=== PATIENT | male | born 1960 | race Caucasian/White ===

== ENCOUNTER 2021-06-25 01:09 | Day surgery (SDC) | payer BC, SELFPAY ==
[2021-05-27 09:58] VITALS: BMI 31.6
--- NOTE | 2021-06-24 12:54 | PM.HPGS ---
History of Present Illness History of Present Illness Consent: Risks, benefits, and alternatives have been discussed and questions answered. Patient agrees to proceed with procedure. Chief complaint: neoplasm screening Narrative: Pelon Gambino is a 61 year old male who was referred for colon cancer screening. His last exam was 12 years ago and was unremarkable Review of Systems Review of Systems: All systems reviewed & are unremarkable except as noted in HPI and below PMFSH Past Medical History Medical History Hypertension AMI (obstructive sleep apnea) Surgical History Surgical History H/O shoulder surgery (~2018) Family History Family History Mother Hypertension Cerebrovascular accident Family history of malignant neoplasm of cervix Heart disease Father Alcohol abuse Grandparent Heart disease Social History Social History Social History: Caffeine-2 cups daily Smoking packs per day: 1 Smoking cigarettes per day: 20.0 Years smoked: 13 Smoking pack-years: 13.00 Smoking status: Former smoker Tobacco type: cigarettes Second hand tobacco smoke exposure: No Smoking end date: 05/31/89 Alcohol intake: current Drinks per week: 2 Alcohol use details: Beer Substance use: never Substance use type: does not use Living arrangements: with family Spiritual care concerns: No Meds Home Medications and Allergies Home Medications Medication Instructions Recorded Confirmed Type lisinopril 20 See Rx Instructions .ROUTE 03/12/21 06/25/21 Rx mg-hydrochlorothiazide 12.5 mg .COMPLEX #180 tablet tablet Allergies Allergy/AdvReac Type Severity Reaction Status Date / Time Penicillins Allergy Unknown unkown Verified 06/25/21 07:49 Exam Resp: Auscultation: clear to auscultation bilaterally Cardio: Rate: regular rate Rhythm: regular rhythm GI: GI Palp: Yes Soft to palpation and No Tenderness to palpation present (GI) Assessment and Plan Assessment and plan (1) Screening for colon cancer: Code(s): Z12.11 - Encounter for screening for malignant neoplasm of colon Status: Acute Assessment and Plan: Colonoscopy with possible biopsy or polypectomy or cautery or injection of substances.
[2021-06-25 07:50] VITALS: BP 134/80; PULSE 88; RESP 18; TEMP 36.3; O2SAT 98
[2021-06-25] MEDS: LACTATED RINGERS 1,000 ML 150 ML IV CONT (07:59)
--- NOTE | 2021-06-25 08:09 | WPDANESEPPF ---
Anes - Initial Pre Proc Eval Procedure: Operation Date: 06/25/21 09:00 Proposed Procedures p Screening Colonoscopy - Ryan Mcdonald MD Date/Time: 06/25/21 08:09 Surgeon: Ryan Mcdonald MD Pre Op Diagnosis: neoplasm screening Patient Data Age: 61 Gender: M Height: 1.78 m Weight: 97.6 kg Last Vital Signs Temp 36.3 C L 06/25/21 07:50 Pulse 88 06/25/21 07:50 Resp 18 06/25/21 07:50 BP 134/80 06/25/21 07:50 Pulse Ox 98 06/25/21 07:50 Allergies Allergy/AdvReac Type Severity Reaction Status Date / Time Penicillins Allergy Unknown unkown Verified 06/25/21 07:49 Home Medications Medication Instructions Recorded Confirmed Type lisinopril 20 See Rx Instructions .ROUTE 03/12/21 06/25/21 Rx mg-hydrochlorothiazide 12.5 mg .COMPLEX #180 tablet tablet Patient hx anesthesia problems: none Family hx anesthesia problems: none Results Review: All pre-operative results and documents have been reviewed as part of the pre-operative evaluation. [facility] Past Medical History Medical History (Updated 06/25/21 @ 08:10 by Elier Ojeda MD) Hypertension AMI (obstructive sleep apnea) Surgical History Surgical History (Updated 03/12/21 @ 08:25 by Lynn Baires) H/O shoulder surgery (~2017) Family History Family History (Updated 03/12/21 @ 08:28 by Lynn Baires) Mother Hypertension Cerebrovascular accident Family history of malignant neoplasm of cervix Heart disease Father Alcohol abuse Grandparent Heart disease Social History Social History (Updated 03/12/21 @ 08:29 by Lynn Baires) Social History: Caffeine-2 cups daily Smoking packs per day: 1 Smoking cigarettes per day: 20.0 Years smoked: 13 Smoking pack-years: 13.00 Smoking status: Former smoker Tobacco type: cigarettes Second hand tobacco smoke exposure: No Smoking end date: 05/31/89 Alcohol intake: current Drinks per week: 2 Alcohol use details: Beer Substance use: never Substance use type: does not use Living arrangements: with family Spiritual care concerns: No Anes - Eval Final PreProcedure Day of Procedure 06/25/21 08:09 Patient weight: overweight Heart: regular rate and rhythm Lungs: clear to auscultation and normal air movement Airway: Mallampati scale class II Neurological: alert and oriented Last oral intake: >/= 8 hours ASA classification: II Emergent: no Anesthetic plan: proceed Anesthesia type and monitoring: general GIVS Results Review: All pre-operative results and documents have been reviewed as part of the pre-operative evaluation. Informed Consent: The patient's anesthetic plan and its attendant risks and benefits were discussed with the patient/family/POA. Questions were solicited and answers provided to the satisfaction of the patient/family/POA.
[2021-06-25 09:13] VITALS: BP 99/71; PULSE 76; RESP 18; O2SAT 96
== END 2021-06-25 09:37 | disposition home or self-care (01) ==
PROVIDERS: PCP Internal Medicine; Visit Provider Internal Medicine Gastroenterology
PROC: 0DJD8ZZ Inspection of Lower Intestinal Tract, Via Natural or Artificial Opening Endoscopic (ICD-10-PCS; CPT 45378; principal; 2021-06-25 09:00)
DX: Z12.11 Encounter for screening for malignant neoplasm of colon (principal); K64.8 Other hemorrhoids; I10 Essential (primary) hypertension; G47.33 Obstructive sleep apnea (adult) (pediatric); Z87.891 Personal history of nicotine dependence
CPT/HCPCS: 45378; J2001; J2704; J7120

== ENCOUNTER 2022-03-18 09:16 | Outpatient (CLI) | payer BC, SELFPAY ==
[2022-03-18 18:23] LABS: Basophils Percent Auto 0.5 % (0.2-1.2); Eosinophils Absolute Auto 0.1 K/mm3 (0-0.3); Eosinophils Percent Auto 1.7 % (0-4.4); Hematocrit 45.9 % (42.0-52.0); Hemoglobin 15.6 g/dL (14.0-18.0); Immature Granulocyte Absolute 0.04 K/mm3 (0.00-0.031); Immature Granulocyte Percent A 0.5 % (0-0.5); Lymphocytes Absolute Auto 1.29 K/mm3 (0.9-3.2); Lymphocytes Percent Auto 15.2 % (18.3-44.2); Mean Corpuscular Hemoglobin 29.8 pg (26-34); Mean Corpuscular Volume 87.6 fl (80-100); Mean Platelet Volume 10.3 fl (7.4-10.4); Monocytes Absolute Auto 0.6 K/mm3 (0.1-0.6); Monocytes Percent Auto 7.4 % (2.6-8.5); Neutrophils Absolute Auto 6.3 K/mm3 (1.3-6.7); Neutrophils Percent Auto 74.7 % (45.5-73.1); Platelet Count Result 178 k/mm3 (150-375); Red Blood Count 5.24 M/mm3 (4.6-6.20); Red Cell Distribution Width 13.2 % (11.5-14.5); White Blood Count 8.5 K/mm3 (4.5-10.0)
[2022-03-18 18:38] LABS: Alanine Aminotransferase 30 U/L (6-50); Albumin Level 4.7 g/dL (3.5-5.1); Alkaline Phosphatase 94 U/L (38-126); Anion Gap 11 mmol/L (8-16); Aspartate Amino Transferase 26 U/L (17-59); Bilirubin,Total 0.7 mg/dL (0.2-1.3); Blood Urea Nitrogen 14 mg/dL (9-20); Calcium 9.5 mg/dL (8.4-10.2); Carbon Dioxide 26 mmol/L (22-30); Chloride 100 mmol/L (98-107); Cholesterol 174 mg/dL (0-200); Estimated Glomerular Filt Rate > 60; Glucose 121 mg/dL (65-110); HDL Direct 35 mg/dL; Potassium 4.2 mmol/L (3.4-5.0); Sodium 137 mmol/L (137-145); Triglycerides 99 mg/dL (<150)
[2022-03-18 18:49] LABS: LDL Cholesterol Direct 99 mg/dL
[2022-03-18 19:09] LABS: Prostate Specific Antigen 1.3 ng/mL (< OR = 4.0)
[2022-03-19 13:39] LABS: Hemoglobin A1C 5.6 % (<5.7)
== END 2022-03-18 09:17 | disposition home or self-care (01) ==
LOC: ANHGOSHLAB 09:19
PROVIDERS: PCP Internal Medicine; Visit Provider Nurse Practitioner
DX: Z12.5 Encounter for screening for malignant neoplasm of prostate (principal); Z13.220 Encounter for screening for lipoid disorders; Z13.29 Encounter for screening for other suspected endocrine disorder
CPT/HCPCS: 36415; 80053; 80061; 83036; 84153; 85025; G0103

== ENCOUNTER 2022-05-26 08:01 | Outpatient (CLI) | payer BC, SELFPAY ==
--- NOTE | 2022-06-04 14:37 | WPDHOMESLEEP ---
Sleep Study - Home Unattended Date of Study: 05/26/22 Ordering Provider: Angelica Serrano NP Interpreting Provider: Natalia Minaya MD Home Sleep Study Type: Watch PAT Height: 1.78 m Weight: 99.79 kg Body Mass Index: 31.5 Neck Circumference (inches): 17.25 [place]: 7 Reason for Sleep Study Loud snoring, history of using CPAP, now using an oral appliance which is not controlling his snoring * 07/15/2008 - Basic nocturnal polysomnogram with moderate obstructive sleep apnea, AHI 26.3, desaturation to 89% with heavy snoring. BMI 30.8 at the time. Sleep History Pelon Winkler is a 62-year-old retired male with a history of constant snoring. He has been told that he stops breathing at night. He had a basic sleep study 07/15/2008 with an AHI of 26.3 and loud snoring. has used CPAP in the past but never benefitted from using it. He currently is using an oral appliance that has worked for several years. Currently, it does not stop his snoring. He has a difficult time falling asleep and staying asleep. He wakes up during the night. He rarely awakens from sleep feeling short of breath. He occasionally awakens at night with heartburn, belching or coughing. He constantly snores and it is frequently loud enough that others complain about it. He frequently has trouble sleeping with a cold. He rarely wakes up gasping for breath at night. He rarely has breathing problems at night reported to him by others. He rarely sweats excessively at night. He rarely notices his heart pounding or beating irregularly at night. He rarely falls asleep during the day. He does not fall asleep involuntarily or while driving. He does not have loss of muscle tone with strong emotion. He does not have daytime difficulties due to excessive sleepiness. He does not feel paralyzed on waking or falling asleep. He rarely has vivid dreamlike scenes on waking or falling asleep. He rarely feels afraid to go to sleep. He rarely has nightmares. He rarely remembers his dreams. He occasionally has racing thoughts. He rarely feels sad or depressed. He occasionally has anxiety. He rarely has muscular tension or notices parts of his body jerking. He does not kick at night or have crawling or aching feelings in his legs. He rarely has any kind of leg pain at night. He rarely has morning jaw pain. He frequently grinds his teeth during sleep. He is not bothered by pain during the day. He rarely is awakened by pain at night. He occasionally wakes up feeling stiff in the morning with sore achy muscles and pain in the neck and spine. Normal bedtime is 10:00 p.m. taking 30 minutes or occasionally up to an hour to fall asleep. He typically wakes 2-3 times during the night to go to the bathroom. It may take him 15-30 minutes to return to sleep. His normal wake time is 6:00 a.m.. He keeps the same schedule on weekends. He estimates getting between 6 and 8 hours of sleep at night. if he wakes before 6:00 a.m., he tries to stay in bed until at least 6:00 a.m. resting. He does not take naps. On occasion, he awakens feeling refreshed. He feels better in the morning compared to other times of day. Habits: Quit tobacco years ago. Caffeine: 3 cups a day. Alcohol: 2-3 beverages usually on the weekends. No recreational drugs. [facility] Past Medical History Medical History Hypertension AMI (obstructive sleep apnea) Surgical History Surgical History H/O shoulder surgery (~2018) Family History Family History Mother Hypertension Cerebrovascular accident Family history of malignant neoplasm of cervix Heart disease Father Alcohol abuse Grandparent Heart disease Social History Social History Social History: Caffeine-2 cups daily Smoking packs per d
[2022-06-04 15:11] VITALS: BMI 31.5
--- NOTE | 2022-09-22 10:09 | SLEEP ---
new calls [id number]
== END 2022-05-27 10:17 | disposition home or self-care (01) ==
LOC: ANHCSM 08:02
PROVIDERS: PCP Internal Medicine; Visit Provider Nurse Practitioner
DX: G47.30 Sleep apnea, unspecified (principal)
CPT/HCPCS: 95800

== ENCOUNTER 2022-06-30 08:21 | Outpatient (CLI) | payer BC, SELFPAY ==
--- NOTE | 2022-06-30 09:02 | ECHO_ITS ---
Patient Info Name: Pelon Gambino Age: 62 years : 1960 Gender: Male Ht: 70 in Wt: 213 lbs BSA: 2.21 m2 HR: 71 bpm BP: 149 / 91 mmHg Technical Quality: Good Exam Date: 06/30/2022 9:10 AM Exam Location: [facility] Patient Status: Outpatient Admit Date: 06/30/2022 Staff Ordering Physician: Angelica Serrano NP Slot Shift Manager: Peri Maldonado RDCS Attending Provider: Prakash Orourke DO Referring Physician: Maggie THAPA; Exam Type: CA echo doppler color flow Study Info Indications G47.31 - PRIMARY CENTRAL SLEEP APNEA Complete two-dimensional, color flow and Doppler transthoracic echocardiogram is performed. Summary 1. Complete two-dimensional, color flow and Doppler transthoracic echocardiogram is performed. 2. Left ventricular chamber dimension is normal. 3. Left ventricular systolic function is normal, estimated at 60-65%. 4. There is mildly increased left ventricular wall thickness. 5. The left ventricular diastolic function is abnormal. 6. E/e' 10 is mildly elevated. 7. Global longitudinal strain is normal at -18.9%. 8. No pulmonary hypertension, estimated pulmonary arterial systolic pressure is 32 mmHg. Left Ventricle E/e' 10 is mildly elevated. Global longitudinal strain is normal at -18.9%. Left ventricular chamber dimension is normal. Left ventricular systolic function is normal, estimated at 60-65%. There is mildly increased left ventricular wall thickness. The left ventricular diastolic function is abnormal. Right Ventricle Right ventricular systolic function is normal and with normal TAPSE 2.3 cm. Right ventricular chamber dimension is normal. Left Atria Left atrial chamber dimension is normal. Right Atria Right atrial chamber dimension is normal. Aortic Valve The aortic valve is trileaflet. There is no aortic valve stenosis. There is no aortic valve regurgitation. Pulmonic Valve There is no pulmonic regurgitation. Mitral Valve There is no mitral valve stenosis. There is no mitral valve regurgitation. Tricuspid Valve There is no tricuspid valve regurgitation. No pulmonary hypertension, estimated pulmonary arterial systolic pressure is 32 mmHg. Pericardium/Pleural There is no pericardial effusion. Inferior Vena Cava Normal inferior vena cava with >50% collapse upon inspiration consistent with normal right atrial pressure, 5 mmHg. Aorta The aortic root size at the sinus of Valsalva is normal. Left Ventricular Outflow Tract Name Value Normal LVOT 2D LVOT Diameter 2.0 cm LVOT Doppler LVOT Peak Gradient 4 mmHg LVOT Mean Gradient 2 mmHg LVOT VTI 21 cm LVOT VTI/AV VTI Ratio 0.9 LVOT Stroke Volume 67 ml LVOT CO 4.1 l/min LVOT CI 1.9 l/min/m2 Pulmonic Valve Name Value Normal
== END 2022-06-30 08:22 | disposition home or self-care (01) ==
PROVIDERS: PCP Internal Medicine; Visit Provider Internal Medicine
DX: R06.3 Periodic breathing (principal); G47.31 Primary central sleep apnea
CPT/HCPCS: 93306

== ENCOUNTER 2022-07-13 08:13 | Outpatient (CLI) | payer BC, SELFPAY ==
[2022-08-04 00:18] VITALS: BMI 30.8
--- NOTE | 2022-08-04 00:18 | WPDSLEEPSTUD ---
Sleep Study Date of Study: 07/13/22 Ordering Provider: Prakash Oroukre DO Interpreting Physician: Natalia Minaya MD Sleep Study Type: BiPAP Titration Height: 1.78 m Weight: 97.522 kg Body Mass Index: 30.8 Neck Circumference (inches): 17 [place]: 4 Reason for Sleep Study He returns for PAP titration after HST May 26, 2022 showing severe AMI and 20.2% of the night with [place]ia-[place]cant[place] respirations. * 07/15/2008 -? Basic nocturnal polysomnogram with moderate obstructive sleep apnea, AHI 26.3, desaturation to 89% with heavy snoring. BMI 30.8 at the time. * 05/26/2022 - Home sleep test using WatchPat on May 26, 2022 shows severe obstructive sleep apnea with an apnea-hypopnea index 33.5 and desaturation 84% with loud snoring.? The patient also showed 20.2% of the night spent in [place]ia-[place] respirations.? * 06/30/2022 - echo showed normal EF 65%. Sleep History Pelon Winkler is a 62-year-old retired male with a history of constant snoring.? He has been told that he stops breathing at night.? He had a basic sleep study 07/15/2008 with an AHI of 26.3 and loud snoring. He has used CPAP in the past but never benefitted from using it. He currently is using an oral appliance that has worked for several years.? Currently, it does not stop his snoring.? He has a difficult time falling asleep and staying asleep.? He wakes up during the night.? ? He rarely awakens from sleep feeling short of breath.? He occasionally awakens at night with heartburn, belching or coughing.? He constantly snores and it is frequently loud enough that others complain about it.? He frequently has trouble sleeping with a cold.? He rarely wakes up gasping for breath at night.? He rarely has breathing problems at night reported to him by others.? He rarely sweats excessively at night.? He rarely notices his heart pounding or beating irregularly at night.? He rarely falls asleep during the day.? He does not fall asleep involuntarily or while driving.? He does not have loss of muscle tone with strong emotion.? He does not have daytime difficulties due to excessive sleepiness.? He does not feel paralyzed on waking or falling asleep.? He rarely has vivid dreamlike scenes on waking or falling asleep.? He rarely feels afraid to go to sleep.? He rarely has nightmares.? He rarely remembers his dreams.? He occasionally has racing thoughts.? He rarely feels sad or depressed.? He occasionally has anxiety.? He rarely has muscular tension or notices parts of his body jerking.? He does not kick at night or have crawling or aching feelings in his legs.? He rarely has any kind of leg pain at night.? He rarely has morning jaw pain.? He frequently grinds his teeth during sleep.? He is not bothered by pain during the day.? He rarely is awakened by pain at night.? He occasionally wakes up feeling stiff in the morning with sore achy muscles and pain in the neck and spine. Normal bedtime is 10:00 p.m. taking 30 minutes or occasionally up to an hour to fall asleep.? He typically wakes 2-3 times during the night to go to the bathroom.? It may take him 15-30 minutes to return to sleep.? His normal wake time is 6:00 a.m..? He keeps the same schedule on weekends.? He estimates getting between 6 and 8 hours of sleep at night. ? if he wakes before 6:00 a.m., he tries to stay in bed until at least 6:00 a.m. resting.? He? does not take naps. ? On occasion, he awakens feeling refreshed. He feels better in the morning compared to other times of day.? Habits: Quit tobacco years ago.? Caffeine: 3 cups a day.? Alcohol: 2-3 beverages usually on the weekends.? No recreational drugs. [facility] Past Medical History Medical History Hypertension AMI (obstructive sleep apnea) Surgical History Surgical History H/O shoulder surgery (~2018) Family History Family History (Reviewed 08/04/22 @ 00:21 by Natalia Minaya,
== END 2022-07-14 05:10 | disposition home or self-care (01) ==
LOC: ANHCSM 08:15
PROVIDERS: PCP Internal Medicine; Visit Provider Internal Medicine
DX: G47.33 Obstructive sleep apnea (adult) (pediatric) (principal); G47.31 Primary central sleep apnea; I10 Essential (primary) hypertension; Z87.891 Personal history of nicotine dependence
CPT/HCPCS: 95811

== ENCOUNTER 2023-04-05 10:04 | Outpatient (CLI) | payer BC, SELFPAY ==
[2023-04-05 19:32] LABS: Basophils Absolute Auto 0.1 K/mm3 (0.0-0.1); Basophils Percent Auto 0.8 % (0.2-1.2); Eosinophils Absolute Auto 0.1 K/mm3 (0-0.3); Eosinophils Percent Auto 1.3 % (0-4.4); Hematocrit 48.7 % (42.0-52.0); Hemoglobin 16.4 g/dL (14.0-18.0); Immature Granulocyte Absolute 0.01 K/mm3 (0.00-0.031); Immature Granulocyte Percent A 0.2 % (0-0.5); Lymphocytes Absolute Auto 1.47 K/mm3 (0.9-3.2); Lymphocytes Percent Auto 24.7 % (18.3-44.2); Mean Corpuscular HGB Conc 33.7 g/dl (32-36); Mean Corpuscular Hemoglobin 30.2 pg (26-34); Mean Corpuscular Volume 89.7 fl (80-100); Mean Platelet Volume 10.5 fl (7.4-10.4); Monocytes Absolute Auto 0.5 K/mm3 (0.1-0.6); Monocytes Percent Auto 8.4 % (2.6-8.5); Neutrophils Absolute Auto 3.8 K/mm3 (1.3-6.7); Neutrophils Percent Auto 64.6 % (45.5-73.1); Platelet Count Result 158 k/mm3 (150-375); Red Blood Count 5.43 M/mm3 (4.6-6.20); Red Cell Distribution Width 13.1 % (11.5-14.5)
[2023-04-05 20:52] LABS: Alanine Aminotransferase 32 U/L (6-50); Albumin Level 4.5 g/dL (3.5-5.1); Alkaline Phosphatase 78 U/L (38-126); Anion Gap 5 mmol/L (8-16); Aspartate Amino Transferase 33 U/L (17-59); Blood Urea Nitrogen 15 mg/dL (9-20); Calcium 9.7 mg/dL (8.4-10.2); Carbon Dioxide 32 mmol/L (22-30); Chloride 100 mmol/L (98-107); Cholesterol 193 mg/dL (0-200); Estimated Glomerular Filt Rate > 60; Glucose 115 mg/dL (65-110); HDL Direct 43 mg/dL; Potassium 4.2 mmol/L (3.4-5.0); Sodium 137 mmol/L (137-145); Triglycerides 142 mg/dL (<150)
[2023-04-05 21:04] LABS: LDL Cholesterol Direct 94 mg/dL
[2023-04-05 21:22] LABS: Prostate Specific Antigen 2.3 ng/mL (< OR = 4.0)
[2023-04-06 12:28] LABS: Hemoglobin A1C 5.1 % (<5.7)
== END 2023-04-05 10:05 | disposition home or self-care (01) ==
LOC: ANHGOSHLAB 10:05
PROVIDERS: PCP Internal Medicine; Visit Provider Nurse Practitioner
DX: R73.9 Hyperglycemia, unspecified (principal); Z13.220 Encounter for screening for lipoid disorders; Z12.5 Encounter for screening for malignant neoplasm of prostate; Z13.29 Encounter for screening for other suspected endocrine disorder
CPT/HCPCS: 36415; 80053; 80061; 83036; 84153; 85025; G0103

== ENCOUNTER 2024-03-14 13:39 | Outpatient (CLI) | payer MEDICARE, SELFPAY ==
[2024-03-14 19:27] LABS: Basophils Percent Auto 0.5 % (0.2-1.2); Eosinophils Absolute Auto 0.1 K/mm3 (0-0.3); Eosinophils Percent Auto 1.2 % (0-4.4); Hematocrit 46.7 % (42.0-52.0); Hemoglobin 15.7 g/dL (14.0-18.0); Immature Granulocyte Absolute 0.01 K/mm3 (0.00-0.031); Immature Granulocyte Percent A 0.1 % (0-0.5); Lymphocytes Absolute Auto 1.49 K/mm3 (0.9-3.2); Lymphocytes Percent Auto 18.3 % (18.3-44.2); Mean Corpuscular HGB Conc 33.6 g/dl (32-36); Mean Corpuscular Hemoglobin 30.1 pg (26-34); Mean Corpuscular Volume 89.5 fl (80-100); Mean Platelet Volume 10.5 fl (7.4-10.4); Monocytes Absolute Auto 0.7 K/mm3 (0.1-0.6); Neutrophils Absolute Auto 5.8 K/mm3 (1.3-6.7); Neutrophils Percent Auto 70.9 % (45.5-73.1); Platelet Count Result 154 k/mm3 (150-375); Red Blood Count 5.22 M/mm3 (4.6-6.20); Red Cell Distribution Width 12.7 % (11.5-14.5); White Blood Count 8.1 K/mm3 (4.5-10.0)
[2024-03-14 20:21] LABS: Alanine Aminotransferase 29 U/L (6-50); Albumin Level 4.6 g/dL (3.5-5.1); Alkaline Phosphatase 78 U/L (38-126); Anion Gap 6 mmol/L (4-12); Aspartate Amino Transferase 36 U/L (17-59); Blood Urea Nitrogen 19 mg/dL (9-20); Calcium 9.9 mg/dL (8.4-10.2); Carbon Dioxide 33 mmol/L (22-30); Chloride 98 mmol/L (98-107); Cholesterol 199 mg/dL (0-200); Estimated Glomerular Filt Rate > 60; Glucose 93 mg/dL (65-110); HDL Direct 51 mg/dL; Potassium 4.3 mmol/L (3.4-5.0); Sodium 137 mmol/L (137-145); Triglycerides 98 mg/dL (<150)
[2024-03-14 20:32] LABS: LDL Cholesterol Direct 92 mg/dL
[2024-03-14 20:52] LABS: Prostate Specific Antigen 2.6 ng/mL (< OR = 4.0)
== END 2024-03-14 13:40 | disposition home or self-care (01) ==
LOC: ANHGOSHLAB 13:40
PROVIDERS: PCP Internal Medicine; Visit Provider Nurse Practitioner
DX: I10 Essential (primary) hypertension (principal); R53.83 Other fatigue; Z13.220 Encounter for screening for lipoid disorders; Z12.5 Encounter for screening for malignant neoplasm of prostate
CPT/HCPCS: 36415; 80053; 80061; 84153; 84443; 85025; G0103

== ENCOUNTER 2025-02-08 11:23 | Outpatient (CLI) | payer MEDICARE, SELFPAY ==
--- OUTSIDE RECORDS SUMMARY | 2025-02-08 13:37 | XMS_ITS | Clinical Summary ---
Author Organization [facility] [place] [address] Address [address] [place] [id number] Care Team Providers Care Borematic Machine Operator Name Role Phone Prakash Orourke DO Primary Care Provider [phone]- [phone] Allergies Active Allergy Reactions Criticality Noted Date Comments Penicillin Unknown 04/21/2022 As child Medications losartan-hydroCH LOROthiazide (HYZAAR) 50-12.5 mg per tablet Take 1 tablet by mouth 2 (two) times a day Active fluticasone propionate (FLONASE) 50 mcg/actuation nasal sprayIndications :Acute sinusitis, recurrence not specified, unspecified location Administer 2 sprays into each nostril daily for 14 days 1 each 4 Active Active Problems No known active problems Medical History Medical History Date Comments Hypertension 05/2008 Sleep apnea 07/15/2008 Family History Medical History Relation Name Comments Arthritis Brothelissa Rodriguez Arthritis Mother Mirian Ludwig Cancer Mother Mirian Ludwig Hypertension Mother Mirian Ludwig Gout Other Relation Name Status Comments Brother Michael Mother Mirian Ludwig Other Social History Tobacco Use Types Packs/Day Years Used Date Smoking Tobacco: Former Cigarettes Q uit: 05/31/1973 Smokeless Tobacco: Never Tobacco Cessation:Counseling Given: Not Answered Personal Safety Answer Date Recorded Getting School Help Needed Not on file 05/29 Sex and Gender Information Value Date Recorded Sex Assigned at Not on file 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 Gender Identity Not on file Sexual Orientation Not on file Obstetrics History Last Filed Vital Signs Vital Sign Reading Time Taken Comments Blood Pressure 134/82 10/31/2023 5:54 PM CDT Pulse 80 10/31/2023 5:54 PM CDT Temperature 36.9 C (98.5 F) 10/31/2023 5:54 PM CDT Respiratory Rate 20 10/31/2023 5:54 PM CDT Oxygen Saturation 100% 10/31/2023 5:54 PM CDT Inhaled Oxygen Concentration - - Weight 101.2 kg (223 lb) 10/31/2023 5:54 PM CDT Height 177.8 cm (5' 10) 10/31/2023 5:54 PM CDT Body Mass Index 32 10/31/2023 5:54 PM CDT Plan of Treatment Health Maintenance Due Date Last Done Comments Colon Cancer Screening-Colonoscopy 1960 Depression Screening 1960 Fall Risk Assessment 1960 Hepatitis C Screening 1960 Prostate Cancer Screening-PSA 1960 DTaP/Tdap/Td Vaccine (1 - Tdap) 1970 Hepatitis B Screening 1977 Pneumococcal vaccine 65+ (1 of 1 - PCV) 2009 Zoster Vaccine (2 of 3) 04/17/2016 02/21/2016 Abdominal Aortic Aneurysm (A AA) Screen 02/14/2024 Well Visit 65+ 02/14/2024 Influenza Vaccine (#1) 2025 , 03/02/2020, 07/17/2014 Insurance [employer] OOS ANTHEM ACCESS Care Teams Borematic Machine Operator Relationship Specialty Start Date End Date Prakash Orourke DO PCP - General Internal Medicine 04/21/22
--- OUTSIDE RECORDS SUMMARY | 2025-02-08 13:37 | XMS_ITS | Clinical Summary ---
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 Gender Identity Not on file Sexual Orientation Not on file Plan of Treatment Health Maintenance Due Date Last Done Comments Hepatitis C Virus (HCV) Screening 1960 TdaP Immunization 1960 Cologuard 02/14/2004 Colonoscopy 02/14/2004 Colorectal Cancer Screening 02/14/2004 Immunochemical Fecal Occult Blood 02/14/2004 Pneumococcal Immunization (5 0+ years) (1 of 1 - PCV) 2009 Zoster Immunization (1 of 2) 2009 SARS-COV-2 Immunization (1 - 2023- season) 2024 Influenza Immunization (#1) 2025 03/02/2020 Respiratory Syncytial Virus (RSV) Immunization (Adult) (1 - 1-dose 75+ series) 2034 Hepatitis B Immunization Aged Out No longer eligible based on patient's age to complete this topic Human Papillomavirus (HPV) Immunization Aged Out No longer eligible b ased on patient's age to complete this topic Meningococcal Immunization (ACWY) Aged Out No longer eligible based on patient's age to complete this topic Rotavirus Immunization Aged Out No lo nger eligible based on patient's age to complete this topic
[2025-02-08 19:19] LABS: Hematocrit 45.3 % (42.0-52.0); Hemoglobin 15.3 g/dL (14.0-18.0); Immature Granulocyte Percent A 0.2 % (0-0.5); Lymphocytes Absolute Auto 1.41 K/mm3 (0.9-3.2); Mean Corpuscular HGB Conc 33.8 g/dl (32-36); Mean Corpuscular Hemoglobin 29.9 pg (26-34); Mean Corpuscular Volume 88.6 fl (80-100); Nucleated Red Blood Cells Absolute Auto 0.000 K/mm3 (0.0-0.012); Nucleated Red Blood Cells Perc 0.0 % (0.0-0.2); Platelet Count Result 152 k/mm3 (150-375); Red Blood Count 5.11 M/mm3 (4.6-6.20); White Blood Count 5.9 K/mm3 (4.5-10.0)
[2025-02-08 19:38] LABS: Alanine Aminotransferase 30 U/L (6-50); Albumin Level 4.3 g/dL (3.5-5.1); Alkaline Phosphatase 82 U/L (38-126); Anion Gap 5 mmol/L (4-12); Aspartate Amino Transferase 32 U/L (17-59); Bilirubin,Total 0.7 mg/dL (0.2-1.3); Blood Urea Nitrogen 17 mg/dL (9-20); Calcium 9.2 mg/dL (8.4-10.2); Carbon Dioxide 33 mmol/L (22-30); Chloride 102 mmol/L (98-107); Cholesterol 175 mg/dL (0-200); Estimated Glomerular Filt Rate > 60; Glucose 112 mg/dL (65-110); HDL Direct 46 mg/dL; Potassium 4.1 mmol/L (3.4-5.0); Sodium 140 mmol/L (137-145); Total Protein 7.2 g/dL (6.3-8.2); Triglycerides 106 mg/dL (<150)
[2025-02-08 20:13] LABS: Prostate Specific Antigen 2.7 ng/mL (< OR = 4.0)
[2025-02-09 17:03] LABS: Hemoglobin A1C 5.4 % (<5.7)
== END 2025-02-08 11:24 | disposition home or self-care (01) ==
LOC: ANHGOSHLAB 11:24
PROVIDERS: PCP Internal Medicine; Visit Provider Nurse Practitioner
DX: Z12.5 Encounter for screening for malignant neoplasm of prostate (principal); E78.5 Hyperlipidemia, unspecified; R73.01 Impaired fasting glucose; R21 Rash and other nonspecific skin eruption; Z13.29 Encounter for screening for other suspected endocrine disorder
CPT/HCPCS: 36415; 80053; 80061; 83036; 84153; 85025; G0103